=== PATIENT | male | born 1940 | race Caucasian/White ===

== ENCOUNTER 2016-10-22 07:07 | Day surgery (SDC) | payer MEDICARE, OTHER ==
[2016-10-22] MEDS ORDERED: Dextrose 5%-Lactated Ringers 1,000 ML IV SCH (08:00)
[2016-10-22] MEDS ORDERED: fentaNYL 100 MCG/2 ML SDV ONE (08:39)
[2016-10-22] MEDS ORDERED: Propofol 200 MG/20 ML SDV ONE (10:41)
[2016-10-22 11:31] VITALS: BP 152/92
--- NOTE | 2016-10-25 14:44 | OR ---
DATE OF PROCEDURE: 10/22/2016 PREOPERATIVE DIAGNOSIS: History of gastroesophageal reflux disease with possible eosinophilic esophagitis. POSTOPERATIVE DIAGNOSIS: History of gastroesophageal reflux disease with possible eosinophilic esophagitis. OPERATIVE PROCEDURE: Esophagogastroduodenoscopy with: 1. Biopsies of antrum for CLOtest. 2. Biopsies of esophagogastric junction for histologic evaluation. 3. Separate biopsies of mid and proximal esophagus for histologic examination to evaluate possibility of the eosinophilic esophagitis. ANESTHESIA: IV sedation. INDICATION FOR PROCEDURE: This is a 76-year-old male presenting with ongoing gastroesophageal reflux disease and had an endoscopy about a year ago. The patient was thought possibly to have some eosinophilic esophagitis, remains quite symptomatic in terms of reflux symptoms despite medical management. Plan is to proceed with an upper endoscopy with biopsies and/or polypectomy as indicated. Potential risks including bleeding and perforation were discussed, and the patient wishes to proceed. DETAILS OF PROCEDURE: The patient was taken to the operating room and placed in a left lateral decubitus position. IV sedation was administered, after which the upper GI endoscope was passed orally through the length of the esophagus and stomach. Retroflexion view of the fundus, and thereafter through the pyloric channel into the proximal duodenum. The patient was noted to have a normal hypopharynx, larynx, upper esophageal sphincter, and esophageal body. At the EG junction, there was some active gastroesophageal reflux disease associated with a small hiatal hernia. No stricture or gross evidence of neoplasia was seen. Within the stomach, there was some mild antral gastritis along with multiple hyperplastic-appearing polyps consistent with long-term proton pump inhibitor use of the pyloric channel and duodenum to the junction of the third and fourth portions was unremarkable. At this point, biopsies were obtained from the antrum and sent for CLOtest for H. pylori. Multiple biopsies were then obtained from esophagogastric junction, sent for histologic evaluation and multiple random biopsies from the mid and proximal esophagus were obtained and sent in a separate container to evaluate the possibility of the eosinophilic esophagitis. Minimally bleeding from the biopsy sites was seen, and the procedure then concluded. The patient will be following up back with us if not better in 1 to 2 weeks. If the patient remains uncontrolled in terms of reflux symptoms, medical management, he would potentially be a candidate for a Gino fundoplication. Tima Guerrero MD /[id number]
== END 2016-10-22 11:32 | disposition home or self-care (01) ==
LOC: JP.SDS 07:07
PROVIDERS: ATTEND Surgery
DX: K31.7 Polyp of stomach and duodenum (principal); K22.8 Other specified diseases of esophagus; Z88.8 Allergy status to other drugs, medicaments and biological substances; Z91.09 Other allergy status, other than to drugs and biological substances; N18.9 Chronic kidney disease, unspecified; I95.9 Hypotension, unspecified
CPT/HCPCS: 43239; 87081; J2704; J3010; J7042; 88305

== ENCOUNTER 2017-12-11 19:41 | Emergency (ER) | payer MEDICARE, OTHER ==
[2017-12-11 20:13] VITALS: BP 139/84
--- NOTE | 2017-12-11 21:08 | EDM.PDOC ---
ED HPI GENERAL MEDICAL PROBLEM - General Chief Complaint: Bite:Animal, Insect Stated Complaint: TICK BITE/JOINT ACHES,NOT FEELING WELL Time Seen by Provider: 12/11/17 20:40 Source of Information: Reports: Patient, Family History Limitations: Reports: No Limitations - History of Present Illness INITIAL COMMENTS - FREE TEXT/NARRATIVE: 77-year-old male who was bitten by a tick several times over the past several weeks. He did remove a deer tick from his left arm that he thought was on for 1- 2 days. He had a small amount of redness initially but felt fine but over the past 48 hours she's developed generalized malaise, mild joint pains and a headache. He is concerned that he may be developing early Lyme's disease or other tickborne illness. No fevers or chills. Denies nausea or vomiting. He has no rash. Onset: Gradual Severity: Mild Associated Symptoms: Reports: Malaise, Other (Headache, fatigue). Denies: Chest Pain, Cough, Fever/Chills, Shortness of Breath - Related Data Allergies Allergy/AdvReac Type Severity Reaction Status Date / Time acetaminophen [From Tylenol] Allergy Rash Verified 12/11/17 20:15 bacitracin Allergy Rash Verified 12/11/17 20:15 cephalexin Allergy Rash Verified 12/11/17 20:15 codeine Allergy Fainting Verified 12/11/17 20:15 tolterodine tartrate Allergy Rash Verified 12/11/17 20:15 [From Detr] environmental Allergy Cannot Uncoded 12/11/17 20:15 Remember Home Meds: Home Meds Acyclovir [Zovirax 5% Oint] 1 applic TOP DAILY PRN 08/21/14 [History] Aspirin [Halfprin] 81 mg PO DAILY 08/21/14 [History] Calcium Polycarbophil [Fibercon] 2 tab PO DAILY 08/21/14 [History] Clobetasol [Temovate 0.05% Crm] 1 applic TOP QID PRN 08/21/14 [History] Levothyroxine Sodium [Synthroid] 75 mcg PO DAILY 08/21/14 [History] Mupirocin Oint [Bactroban Oint] 1 applic TP QID PRN 08/21/14 [History] [place]-3 Fatty Acids [[place]-3] 1,000 mg PO BID 08/21/14 [History] Omeprazole 40 mg PO DAILY 08/21/14 [History] Sildenafil [Viagra] 100 mg PO ASDIRECTED PRN 08/21/14 [History] Triamcinolone Acetonide [Kenalog 0.1% Crm] 0.1 percent TOP QID PRN 08/21/14 [ History] atorvaSTATin [Lipitor] 20 mg PO BEDTIME 08/21/14 [History] valACYclovir [Valtrex] 1,000 mg PO BID PRN 08/21/14 [History] Allopurinol [Zyloprim] 100 mg PO DAILY 10/31/15 [History] Cyanocobalamin (Vitamin B-12) [B-12] 2,500 mcg PO DAILY 10/31/15 [History] Pentoxifylline [TRENtal] 400 mg PO TID 12/11/17 [History] Past Medical History HEENT History: Reports: Allergic Rhinitis, Impaired Vision, Sinusitis Other HEENT History: wears glasses Cardiovascular History: Reports: Heart Murmur, High Cholesterol Gastrointestinal History: Reports: GERD Genitourinary History: Reports: BPH, Prostate Disorder, Renal Disease Musculoskeletal History: Reports: Gout Neurological History: Reports: Headaches, Chronic, Vertigo Endocrine/Metabolic History: Reports: Hypothyroidism, Vitamin D Deficiency Hematologic History: Reports: B12 Deficiency, Other (See Below) Other Hematologic History: monoclonol protein Oncologic (Cancer) History: Reports: Basal Cell Carcinoma, Prostate Dermatologic History: Reports: Psoriasis, Urticaria - Infectious Disease History Infectious Disease History: Reports: Measles, Mumps - Past Surgical History HEENT Surgical History: Reports: Tonsillectomy, Other (See Below) Cardiovascular Surgical History: Reports: Other (See Below) GI Surgical History: Reports: Colonoscopy, EGD, Hernia, Inguinal, Hernia Repair/ Other Male Surgical History: Reports: Prostate Biopsy, Prostatectomy, Other (See Below) Musculoskeletal Surgical History: Reports: Arthroscopic Knee Oncologic Surgical History: Reports: Other (See Below) Dermatological Surgical History: Reports: Skin Biopsy Social & Family History - Family History Family Medical History: Noncontributory - Tobacco Use Smoking Status *Q: Never Smoker - Caffeine Use Caffeine Use: Reports: Soda - Recreational Drug Use Recreational Drug Use: No ED ROS GENERAL - Review of Systems Review Of Systems: See Below Constitutional: Reports: Malaise, Weakness. Denies: Fever, Chills HEENT: Reports: No Symptoms Respiratory: Denies: Shortness of Breath Cardiovascular: Denies: Chest Pain GI/Abdominal: Denies: Nausea, Vomiting : Reports: No Symptoms Musculoskeletal: Reports: Joint Pain (Generalized joint aching) Skin: Denies: Rash Neurological: Reports: Headache. Denies: Dizziness Psychiatric: Reports: No Symptoms ED EXAM, ANIMAL BITE - Physical Exam Exam: See Below Exam Limited By: No Limitations General Appearance: Alert, No Apparent Distress Eye Exam: Bilateral Eye: Normal Inspection Head: Atraumatic Neck: Normal Inspection Respiratory/Chest: No Respiratory Distress, Lungs Clear Cardiovascular: Regular Rate, Rhythm Extremities: Normal Inspection (I do not appreciate objective joint inflammation or swelling, no erythema) Neurological: Alert, Oriented Psychiatric: Normal Affect, Normal Mood Course - Vital Signs Last Recorded V/S: Last Vital Signs Temp 98.7 F 12/11/17 20:21 Pulse 92 12/11/17 20:21 Resp 16 12/11/17 20:21 BP 139/84 12/11/17 20:21 Pulse Ox 97 12/11/17 20:21 - Orders/Labs/Meds Orders: Active Orders 24 hr Category Date Time Status BABESIA MICROTI ANTIBODY PANEL Stat Lab 12/11/17 21:08 Received E. CHAFFEENSIS-HME (MONOCYTIC) Stat Lab 12/11/17 21:08 Received LYME, TOTAL AB TEST/REFLEX Routine Lab 12/11/17 21:02 Received - Re-Assessments/Exams Free Text/Narrative Re-Assessment/Exam: 12/11/17 21:05 Lyme's disease, ehrlichiosis and babesiosis titers were obtained. Patient will be started on doxycycline 100 mg twice a day pending lab results and was given a 10 day supply. This will need to be repeated if labs are positive. He can return if worsening despite treatment. Departure - Departure Time of Disposition: 21:16 Disposition: Home, Self-Care 01 Condition: Good Clinical Impression: Myalgia Tick bite of forearm Qualifiers: Encounter type: initial encounter Laterality: left Qualified Code(s): S50.862A - Insect bite (nonvenomous) of left forearm, initial encounter - Discharge Information Instructions: Tick Bite Information, Adult, [id number] Referrals: Luis Carlos Nicole MD [Primary Care Provider] - Forms: ED Department Discharge Care Plan Goals: Take doxycycline twice daily until you are contacted about lab results. If lab results are positive you will need another course of antibiotic for a full 3 weeks treatment. If lab results are negative but the antibiotic seems to be helping, just finish current prescription. Return sooner if worsening despite treatment. - My Orders Last 24 Hours: My Active Orders 12/11/17 21:02 LYME, TOTAL AB TEST/REFLEX Routine 12/11/17 21:08 BABESIA MICROTI ANTIBODY PANEL Stat E. CHAFFEENSIS-HME (MONOCYTIC) Stat - Assessment/Plan Last 24 Hours: My Active Orders 12/11/17 21:02 LYME, TOTAL AB TEST/REFLEX Routine 12/11/17 21:08 BABESIA MICROTI ANTIBODY PANEL Stat E. CHAFFEENSIS-HME (MONOCYTIC) Stat
== END 2017-12-11 21:17 | disposition home or self-care (01) ==
LOC: JP.ED 19:41
DX: S50.862A Insect bite (nonvenomous) of left forearm, initial encounter (principal); M79.1 Myalgia; E78.00 Pure hypercholesterolemia, unspecified; K21.9 Gastro-esophageal reflux disease without esophagitis; E03.9 Hypothyroidism, unspecified; Z79.899 Other long term (current) drug therapy; Z79.82 Long term (current) use of aspirin; Z88.1 Allergy status to other antibiotic agents; Z88.8 Allergy status to other drugs, medicaments and biological substances; Z91.09 Other allergy status, other than to drugs and biological substances; Z88.6 Allergy status to analgesic agent; W57.XXXA Bitten or stung by nonvenomous insect and other nonvenomous arthropods, initial encounter
CPT/HCPCS: 86666; 86666-59; 86753; 99283

== ENCOUNTER 2018-07-24 10:45 | Emergency (ER) | payer MEDICARE, OTHER ==
[2018-07-24 11:05] VITALS: BP 159/97
--- NOTE | 2018-07-24 11:52 | EDM.PDOC ---
ED HPI GENERAL MEDICAL PROBLEM - General Chief Complaint: ENT Problem Stated Complaint: SORE THROAT Time Seen by Provider: 07/24/18 11:30 Source of Information: Reports: Patient History Limitations: Reports: No Limitations - History of Present Illness INITIAL COMMENTS - FREE TEXT/NARRATIVE: 78-year-old male with a sore throat for the past 5 days, much worse over the past 24 hours. He is concerned because he is leaving for [place] in a few days and wants to be treated if possible. He's also developed sinus congestion with sinus drainage. No cough, no significant fevers. He is also interested in some ciprofloxacin to take with him on his trip. Onset: Gradual Duration: Day(s): (7 days) Associated Symptoms: Reports: Other (Sinus pressure, drainage). Denies: Chest Pain, Cough, Malaise, Nausea/Vomiting - Related Data Allergies Allergy/AdvReac Type Severity Reaction Status Date / Time acetaminophen [From Tylenol] Allergy Rash Verified 07/24/18 11:13 bacitracin Allergy Rash Verified 07/24/18 11:13 cephalexin Allergy Rash Verified 07/24/18 11:13 codeine Allergy Fainting Verified 07/24/18 11:13 tolterodine tartrate Allergy Rash Verified 07/24/18 11:13 [From Detrol] environmental Allergy Cannot Uncoded 07/24/18 11:13 Remember Home Meds: Home Meds Acyclovir [Zovirax 5% Oint] 1 applic TOP DAILY PRN 08/21/14 [History] Aspirin [Halfprin] 81 mg PO DAILY 08/21/14 [History] Calcium Polycarbophil [Fibercon] 2 tab PO DAILY 08/21/14 [History] Clobetasol [Temovate 0.05% Crm] 1 applic TOP QID PRN 08/21/14 [History] Levothyroxine Sodium [Synthroid] 75 mcg PO DAILY 08/21/14 [History] Mupirocin Oint [Bactroban Oint] 1 applic TP QID PRN 08/21/14 [History] [place]-3 Fatty Acids [[place]-3] 1,000 mg PO BID 08/21/14 [History] Omeprazole 40 mg PO DAILY 08/21/14 [History] Sildenafil [Viagra] 100 mg PO ASDIRECTED PRN 08/21/14 [History] Triamcinolone Acetonide [Kenalog 0.1% Crm] 0.1 percent TOP QID PRN 08/21/14 [ History] atorvaSTATin [Lipitor] 20 mg PO BEDTIME 08/21/14 [History] valACYclovir [Valtrex] 1,000 mg PO BID PRN 08/21/14 [History] Allopurinol [Zyloprim] 100 mg PO DAILY 10/31/15 [History] Cyanocobalamin (Vitamin B-12) [B-12] 2,500 mcg PO DAILY 10/31/15 [History] Pentoxifylline [TRENtal] 400 mg PO TID 12/11/17 [History] Past Medical History HEENT History: Reports: Allergic Rhinitis, Impaired Vision, Sinusitis Other HEENT History: wears glasses Cardiovascular History: Reports: Heart Murmur, High Cholesterol Gastrointestinal History: Reports: GERD Genitourinary History: Reports: BPH, Prostate Disorder, Renal Disease Musculoskeletal History: Reports: Gout Neurological History: Reports: Headaches, Chronic, Vertigo Endocrine/Metabolic History: Reports: Hypothyroidism, Vitamin D Deficiency Hematologic History: Reports: B12 Deficiency, Other (See Below) Other Hematologic History: monoclonol protein Oncologic (Cancer) History: Reports: Basal Cell Carcinoma, Prostate Dermatologic History: Reports: Psoriasis, Urticaria - Infectious Disease History Infectious Disease History: Reports: Measles, Mumps - Past Surgical History HEENT Surgical History: Reports: Tonsillectomy, Other (See Below) Cardiovascular Surgical History: Reports: Other (See Below) GI Surgical History: Reports: Colonoscopy, EGD, Hernia, Inguinal, Hernia Repair/ Other Male Surgical History: Reports: Prostate Biopsy, Prostatectomy, Other (See Below) Musculoskeletal Surgical History: Reports: Arthroscopic Knee Oncologic Surgical History: Reports: Other (See Below) Dermatological Surgical History: Reports: Skin Biopsy Social & Family History - Family History Family Medical History: Noncontributory - Tobacco Use Smoking Status *Q: Never Smoker - Caffeine Use Caffeine Use: Reports: Soda ED ROS ENT - Review of Systems Review Of Systems: See Below Constitutional: Denies: Fever, Chills HEENT: Reports: Sinus Problem, Throat Pain. Denies: Ear Pain Respiratory: Denies: Shortness of Breath, Cough Cardiovascular: Denies: Chest Pain GI/Abdominal: Denies: Abdominal Pain, Nausea, Vomiting : Reports: No Symptoms Musculoskeletal: Reports: Other (Recently had an injection in his left knee for arthritis) ED EXAM, ENT - Physical Exam Exam: See Below Exam Limited By: No Limitations General Appearance: Alert, No Apparent Distress Ears: Normal TMs Nose: Normal Inspection Mouth/Throat: Pharyngeal Erythema Head: Atraumatic, Sinus Tenderness (Is tender over the maxillary sinus and frontal sinuses) Neck: No: Lymphadenopathy (R), Lymphadenopathy (L) Respiratory/Chest: No Respiratory Distress, Lungs Clear Course - Vital Signs Last Recorded V/S: Last Vital Signs Temp 96.8 F 07/24/18 11:18 Pulse 82 07/24/18 11:18 Resp 16 07/24/18 11:18 BP 159/97 H 07/24/18 11:18 Pulse Ox 98 07/24/18 11:18 - Orders/Labs/Meds Orders: Active Orders 24 hr Category Date Time Status CULTURE STREP A CONFIRMATION [] Stat Lab 07/24/18 11:19 Results STREP SCRN A RAPID W CULT CONF [] Stat Lab 07/24/18 11:19 Results - Re-Assessments/Exams Free Text/Narrative Re-Assessment/Exam: 07/24/18 11:52 Rapid strep was obtained which is negative. Patient can be covered with amoxicillin 500 3 times a day for sinusitis prior to his trip, and was also supplied Cipro for preventative measures while gone. He was given 100 mL of viscous lidocaine to use for a painful throat until he improves. Departure - Departure Time of Disposition: 12:07 Disposition: Home, Self-Care 01 Condition: Good Clinical Impression: Pharyngitis Qualifiers: Pharyngitis/tonsillitis etiology: unspecified etiology Qualified Code(s): J02.9 - Acute pharyngitis, unspecified Sinusitis Qualifiers: Sinusitis location: maxillary Chronicity: acute Recurrence: non-recurrent Qualified Code(s): J01.00 - Acute maxillary sinusitis, unspecified - Discharge Information Instructions: Sinusitis, Adult, [id number] Referrals: Luis Carlos Nicole MD [Primary Care Provider] - Forms: ED Department Discharge Care Plan Goals: Take amoxicillin as directed for acute symptoms of sore throat and sinus issues. Use viscous lidocaine for throat pain, and save Cipro for your trip and take if necessary. Recheck prior to leaving if not improving satisfactorily. - My Orders Last 24 Hours: My Active Orders 07/24/18 11:19 CULTURE STREP A CONFIRMATION [RM] Stat STREP SCRN A RAPID W CULT CONF [RM] Stat - Assessment/Plan Last 24 Hours: My Active Orders 07/24/18 11:19 CULTURE STREP A CONFIRMATION [RM] Stat STREP SCRN A RAPID W CULT CONF [RM] Stat
== END 2018-07-24 12:07 | disposition home or self-care (01) ==
LOC: JP.ED 10:45
DX: J02.9 Acute pharyngitis, unspecified (principal); J01.00 Acute maxillary sinusitis, unspecified; E78.00 Pure hypercholesterolemia, unspecified; K21.9 Gastro-esophageal reflux disease without esophagitis; E03.9 Hypothyroidism, unspecified; Z79.82 Long term (current) use of aspirin; Z79.899 Other long term (current) drug therapy; Z88.1 Allergy status to other antibiotic agents; Z88.5 Allergy status to narcotic agent; Z88.8 Allergy status to other drugs, medicaments and biological substances; Z90.89 Acquired absence of other organs; Z98.871 Personal history of in utero procedure while a fetus
CPT/HCPCS: 87081; 87430; 99283

== ENCOUNTER 2018-09-21 16:50 | Emergency (ER) | payer MEDICARE, OTHER ==
[2018-09-21 17:00] VITALS: BP 153/106
--- NOTE | 2018-09-21 17:58 | EDM.PDOC ---
ED HPI GENERAL MEDICAL PROBLEM - General Chief Complaint: Lower Extremity Injury/Pain Stated Complaint: LEFT LEG PAIN Time Seen by Provider: 09/21/18 17:37 Source of Information: Reports: Patient History Limitations: Reports: No Limitations - History of Present Illness INITIAL COMMENTS - FREE TEXT/NARRATIVE: This gentleman comes in because of left knee and lower leg swelling. He had surgery to the left knee arthroscopic surgery on 31 August. Today he was doing a lot of walking and went to physical therapy. He said now his left knee is swelling a little bit but he has sudden pain in the left calf especially the lateral side of the calf at about the junction between the middle and lower thirds. There is no history of clots Left Lower Leg Pain Score (Numeric/FACES): 8 - Related Data Allergies Allergy/AdvReac Type Severity Reaction Status Date / Time acetaminophen [From Tylenol] Allergy Rash Verified 09/21/18 17:02 bacitracin Allergy Rash Verified 09/21/18 17:02 cephalexin Allergy Rash Verified 09/21/18 17:02 codeine Allergy Fainting Verified 09/21/18 17:02 tolterodine tartrate Allergy Rash Verified 09/21/18 17:02 [From Detrol] environmental Allergy Cannot Uncoded 09/21/18 17:02 Remember Home Meds: Home Meds Acyclovir [Zovirax 5% Oint] 1 applic TOP DAILY PRN 08/21/14 [History] Aspirin [Halfprin] 81 mg PO DAILY 08/21/14 [History] Clobetasol [Temovate 0.05% Crm] 1 applic TOP QID PRN 08/21/14 [History] Levothyroxine Sodium [Synthroid] 75 mcg PO DAILY 08/21/14 [History] Mupirocin Oint [Bactroban Oint] 1 applic TP QID PRN 08/21/14 [History] [place]-3 Fatty Acids [[place]-3] 1,000 mg PO BID 08/21/14 [History] Omeprazole 40 mg PO DAILY 08/21/14 [History] Sildenafil [Viagra] 100 mg PO ASDIRECTED PRN 08/21/14 [History] Triamcinolone Acetonide [Kenalog 0.1% Crm] 0.1 percent TOP QID PRN 08/21/14 [ History] atorvaSTATin [Lipitor] 20 mg PO BEDTIME 08/21/14 [History] valACYclovir [Valtrex] 1,000 mg PO BID PRN 08/21/14 [History] Allopurinol [Zyloprim] 100 mg PO DAILY 10/31/15 [History] Cyanocobalamin (Vitamin B-12) [B-12] 2,500 mcg PO DAILY 10/31/15 [History] Pentoxifylline [TRENtal] 400 mg PO TID 12/11/17 [History] Cholecalciferol (Vitamin D3) [Vitamin D] 2,000 unit PO DAILY 09/21/18 [History] Multivitamin [Multivitamins] 1 each PO DAILY 09/21/18 [History] Past Medical History HEENT History: Reports: Allergic Rhinitis, Impaired Vision, Sinusitis Other HEENT History: wears glasses Cardiovascular History: Reports: Heart Murmur, High Cholesterol Gastrointestinal History: Reports: GERD Genitourinary History: Reports: BPH, Prostate Disorder, Renal Disease Musculoskeletal History: Reports: Gout Neurological History: Reports: Headaches, Chronic, Vertigo Endocrine/Metabolic History: Reports: Hypothyroidism, Vitamin D Deficiency Hematologic History: Reports: B12 Deficiency, Other (See Below) Other Hematologic History: monoclonol protein Oncologic (Cancer) History: Reports: Basal Cell Carcinoma, Prostate Dermatologic History: Reports: Psoriasis, Urticaria - Infectious Disease History Infectious Disease History: Reports: Measles, Mumps - Past Surgical History Head Surgeries/Procedures: Reports: None HEENT Surgical History: Reports: Tonsillectomy, Other (See Below) Cardiovascular Surgical History: Reports: Other (See Below) Other Cardiovascular Surgeries/Procedures: angiogram GI Surgical History: Reports: Colonoscopy, EGD, Hernia, Inguinal, Hernia Repair/ Other Male Surgical History: Reports: Prostate Biopsy, Prostatectomy, Other (See Below) Endocrine Surgical History: Reports: None Musculoskeletal Surgical History: Reports: Arthroscopic Knee Oncologic Surgical History: Reports: Other (See Below) Dermatological Surgical History: Reports: Skin Biopsy Social & Family History - Family History Family Medical History: Noncontributory - Tobacco Use Smoking Status *Q: Never Smoker Second Hand Smoke Exposure: No - Caffeine Use Caffeine Use: Reports: Soda - Recreational Drug Use Recreational Drug Use: No Review of Systems - Review of Systems Review Of Systems: ROS reveals no pertinent complaints other than HPI. ED EXAM, GENERAL - Physical Exam Exam: See Below Exam Limited By: No Limitations General Appearance: Alert, WD/WN Extremities: Other (There is a mild effusion to the left knee. Left knee is nontender. There is just some mild ecchymosis to the posterior aspect of the left knee. Good range of motion of the left knee. No visible swelling of the lower leg but there is point tenderness to the lateral side of the calf it's about two th[address] way down that is the junction of the middle and lower third there is an area of point tenderness this feels to be musculoskeletal there is nothing there that makes me think of a DVT. The posterior calf muscles are all soft and nontender. There is decreased posterior tibial pulse and I was unable to palpate a dorsalis pedis pulse of the left foot. There is a lot of dependent rubor to his toes but with him reclining in the leg elevated normal color returns to his toes capillary refill is about 2-3 seconds. Overall my impression is that he does not have a DVT and that his pain is probably caused by overuse.) Course - Vital Signs Last Recorded V/S: Last Vital Signs Temp 36.2 C 09/21/18 17:05 Pulse 100 09/21/18 17:05 Resp 16 09/21/18 17:05 BP 153/106 H 09/21/18 17:05 Pulse Ox 96 09/21/18 17:05 Departure - Departure Time of Disposition: 17:56 Disposition: Home, Self-Care 01 Condition: Fair Clinical Impression: Effusion of left knee, Pain in left lower leg - Discharge Information Instructions: Musculoskeletal Pain, Pain Without a Known Cause Referrals: Luis Carlos Nicole MD [Primary Care Provider] - Forms: ED Department Discharge Additional Instructions: There does not appear to be a DVT in your left leg that would be a deep vein clot. It's possible to get a clot in the little tiny veins under the skin in that might cause some real localized tenderness but that's nothing to worry about. You can also develop inflammation in tendons were reattached to muscles and so forth. To treat this wear the kelli wrap heat may help. Elevate your leg when not walking. It would be best to cut down your walking. Follow-up with the orthopedist tomorrow as planned
== END 2018-09-21 18:09 | disposition home or self-care (01) ==
LOC: JP.ED 16:50
DX: M25.462 Effusion, left knee (principal); M79.662 Pain in left lower leg; E78.00 Pure hypercholesterolemia, unspecified; K21.9 Gastro-esophageal reflux disease without esophagitis; E03.9 Hypothyroidism, unspecified; Z88.8 Allergy status to other drugs, medicaments and biological substances; Z88.5 Allergy status to narcotic agent; Z79.82 Long term (current) use of aspirin; Z79.899 Other long term (current) drug therapy
CPT/HCPCS: 99283

== ENCOUNTER 2018-10-06 13:15 | Emergency (ER) | payer MEDICARE, OTHER ==
[2018-10-06 13:34] VITALS: BP 144/85
--- NOTE | 2018-10-06 14:01 | EDM.PDOC ---
ED HPI GENERAL MEDICAL PROBLEM - General Chief Complaint: Lower Extremity Injury/Pain Stated Complaint: LEFT KNEE PAIN Time Seen by Provider: 10/06/18 13:57 Source of Information: Reports: Patient History Limitations: Reports: No Limitations - History of Present Illness INITIAL COMMENTS - FREE TEXT/NARRATIVE: pt went to get out of the car and he heard something snap in the left knee . On September 26 he had some cartilage cleaned up and trimmed in the knee. He has continued to have pain and he feels like the knee continues to be swollen. Onset: Today, Other ( the snapping started today. ) Duration: Hour(s): Location: Reports: Lower Extremity, Left Associated Symptoms: Reports: No Other Symptoms - Related Data Allergies Allergy/AdvReac Type Severity Reaction Status Date / Time acetaminophen [From Tylenol] Allergy Rash Verified 09/21/18 17:02 bacitracin Allergy Rash Verified 09/21/18 17:02 cephalexin Allergy Rash Verified 09/21/18 17:02 codeine Allergy Fainting Verified 09/21/18 17:02 tolterodine tartrate Allergy Rash Verified 09/21/18 17:02 [From [facility]] environmental Allergy Cannot Uncoded 09/21/18 17:02 Remember Home Meds: Home Meds Acyclovir [Zovirax 5% Oint] 1 applic TOP DAILY PRN 08/21/14 [History] Aspirin [Halfprin] 81 mg PO DAILY 08/21/14 [History] Clobetasol [Temovate 0.05% Crm] 1 applic TOP QID PRN 08/21/14 [History] Levothyroxine Sodium [Synthroid] 75 mcg PO DAILY 08/21/14 [History] Mupirocin Oint [Bactroban Oint] 1 applic TP QID PRN 08/21/14 [History] [place]-3 Fatty Acids [[place]-3] 1,000 mg PO BID 08/21/14 [History] Omeprazole 40 mg PO DAILY 08/21/14 [History] Sildenafil [Viagra] 100 mg PO ASDIRECTED PRN 08/21/14 [History] Triamcinolone Acetonide [Kenalog 0.1% Crm] 0.1 percent TOP QID PRN 08/21/14 [ History] atorvaSTATin [Lipitor] 20 mg PO BEDTIME 08/21/14 [History] valACYclovir [Valtrex] 1,000 mg PO BID PRN 08/21/14 [History] Allopurinol [Zyloprim] 100 mg PO DAILY 10/31/15 [History] Cyanocobalamin (Vitamin B-12) [B-12] 2,500 mcg PO DAILY 10/31/15 [History] Pentoxifylline [TRENtal] 400 mg PO TID 12/11/17 [History] Cholecalciferol (Vitamin D3) [Vitamin D] 2,000 unit PO DAILY 09/21/18 [History] Multivitamin [Multivitamins] 1 each PO DAILY 09/21/18 [History] Past Medical History HEENT History: Reports: Allergic Rhinitis, Impaired Vision, Sinusitis Other HEENT History: wears glasses Cardiovascular History: Reports: Heart Murmur, High Cholesterol Gastrointestinal History: Reports: GERD Genitourinary History: Reports: BPH, Prostate Disorder, Renal Disease Musculoskeletal History: Reports: Gout Neurological History: Reports: Headaches, Chronic, Vertigo Endocrine/Metabolic History: Reports: Hypothyroidism, Vitamin D Deficiency Hematologic History: Reports: B12 Deficiency, Other (See Below) Other Hematologic History: monoclonol protein Oncologic (Cancer) History: Reports: Basal Cell Carcinoma, Prostate Dermatologic History: Reports: Psoriasis, Urticaria - Infectious Disease History Infectious Disease History: Reports: Measles, Mumps - Past Surgical History Head Surgeries/Procedures: Reports: None HEENT Surgical History: Reports: Tonsillectomy, Other (See Below) Cardiovascular Surgical History: Reports: Other (See Below) Other Cardiovascular Surgeries/Procedures: angiogram GI Surgical History: Reports: Colonoscopy, EGD, Hernia, Inguinal, Hernia Repair/ Other Male Surgical History: Reports: Prostate Biopsy, Prostatectomy, Other (See Below) Endocrine Surgical History: Reports: None Musculoskeletal Surgical History: Reports: Arthroscopic Knee Oncologic Surgical History: Reports: Other (See Below) Dermatological Surgical History: Reports: Skin Biopsy Social & Family History - Family History Family Medical History: Noncontributory - Caffeine Use Caffeine Use: Reports: Soda Review of Systems - Review of Systems Review Of Systems: See Below Constitutional: Reports: No Symptoms Eyes: Reports: No Symptoms Ears: Reports: No Symptoms Nose: Reports: No Symptoms Mouth/Throat: Reports: No Symptoms Respiratory: Reports: No Symptoms Cardiovascular: Reports: No Symptoms GI/Abdominal: Reports: No Symptoms Genitourinary: Reports: No Symptoms Musculoskeletal: Reports: Other (pain and swelling in the left knee. ) ED EXAM, GENERAL - Physical Exam Exam: See Below Free Text/Narrative:: pt arrived with increased pain in the left knee. He had a scope and some trimming of the cartilage on Sep 26. He has continued to be fairly uncomfortable. He got out of the car and he felt something snap and was quite uncomfortable. Exam Limited By: No Limitations General Appearance: Alert, Anxious, Mild Distress Extremities: Other (left knee appears to have a fair amount of fluid in the joint. It is not hot or inflamed. He is uncomfortable when he straightens out the knee. ) Neurological: Alert, Oriented, Normal Cognition Psychiatric: Normal Affect Course - Vital Signs Last Recorded V/S: Last Vital Signs Temp 35.6 C 10/06/18 13:33 Pulse 74 10/06/18 13:33 Resp 16 10/06/18 13:33 BP 144/85 H 10/06/18 13:33 Pulse Ox 98 10/06/18 13:33 - Orders/Labs/Meds Labs: Laboratory Tests 10/06/18 Range/Units 13:51 WBC 8.4 (4.5-11.0) K/uL RBC 5.69 (4.30-5.90) M/uL Hgb 16.2 H (12.0-15.0) g/dL Hct 49.9 (40.0-54.0) % MCV 88 (80-98) fL MCH 29 (27-31) pg MCHC 33 (32-36) % Plt Count 202 (150-400) K/uL Neut % (Auto) 66 (36-66) % Lymph % (Auto) 20 L (24-44) % Taney % (Auto) 9 H (2-6) % Eos % (Auto) 4 (2-4) % Baso % (Auto) 1 (0-1) % - Re-Assessments/Exams Free Text/Narrative Re-Assessment/Exam: 10/06/18 14:17 pt has a wbc which is normal. Departure - Departure Time of Disposition: 14:10 Disposition: Home, Self-Care 01 Condition: Fair Clinical Impression: Postoperative pain of knee - Discharge Information Referrals: Luis Carlos Nicole MD [Primary Care Provider] - Forms: ED Department Discharge Care Plan Goals: use 1/2 of the oxycodone that he has at home q6h as needed for pain, cool pack, minimal wt bearing. rtc for a MRI of left knee.
== END 2018-10-06 14:40 | disposition home or self-care (01) ==
LOC: JP.ED 13:15
DX: G89.18 Other acute postprocedural pain (principal); E78.00 Pure hypercholesterolemia, unspecified; K21.9 Gastro-esophageal reflux disease without esophagitis; E03.9 Hypothyroidism, unspecified; Z79.899 Other long term (current) drug therapy; Z79.82 Long term (current) use of aspirin; Z88.6 Allergy status to analgesic agent; Z88.1 Allergy status to other antibiotic agents; Z91.09 Other allergy status, other than to drugs and biological substances; Z88.8 Allergy status to other drugs, medicaments and biological substances
CPT/HCPCS: 36415; 85025; 99283

== ENCOUNTER 2018-10-21 15:53 | Emergency (ER) | payer MEDICARE, OTHER ==
[2018-10-21 16:18] VITALS: BP 153/87
--- NOTE | 2018-10-21 16:50 | EDM.PDOC ---
ED HPI GENERAL MEDICAL PROBLEM - General Chief Complaint: Lower Extremity Injury/Pain Stated Complaint: LT KNEE PAIN Time Seen by Provider: 10/21/18 16:35 Source of Information: Reports: Patient History Limitations: Reports: No Limitations - History of Present Illness INITIAL COMMENTS - FREE TEXT/NARRATIVE: This gentleman complains of left knee pain. His left knee was scoped on August 31. He has had continued pain since then and about one week ago he had a cortisone injection. He called orthopedic clinic today and they told him to come to the ER because they were worried about a joint infection. He describes pain even at rest going from the lateral side of the mid thigh all the way down to his ankle. He says his left calf seems to be a little bit swollen today. He also notes swelling of the left knee. He's been taking Tylenol up to 6000 mg per day. He has some oxycodone at home but has not been taking it. Left Knee Pain Score (Numeric/FACES): 8 - Related Data Allergies Allergy/AdvReac Type Severity Reaction Status Date / Time bacitracin Allergy Rash Verified 10/21/18 16:18 cephalexin Allergy Rash Verified 10/21/18 16:18 codeine Allergy Fainting Verified 10/21/18 16:18 tolterodine tartrate Allergy Rash Verified 10/21/18 16:18 [From [facility]] environmental Allergy Cannot Uncoded 09/21/18 17:02 Remember Home Meds: Home Meds Acyclovir [Zovirax 5% Oint] 1 applic TOP DAILY PRN 08/21/14 [History] Aspirin [Halfprin] 81 mg PO DAILY 08/21/14 [History] Clobetasol [Temovate 0.05% Crm] 1 applic TOP QID PRN 08/21/14 [History] Levothyroxine Sodium [Synthroid] 75 mcg PO DAILY 08/21/14 [History] Mupirocin Oint [Bactroban Oint] 1 applic TP QID PRN 08/21/14 [History] [place]-3 Fatty Acids [[place]-3] 1,000 mg PO BID 08/21/14 [History] Omeprazole 40 mg PO DAILY 08/21/14 [History] Sildenafil [Viagra] 100 mg PO ASDIRECTED PRN 08/21/14 [History] Triamcinolone Acetonide [Kenalog 0.1% Crm] 0.1 percent TOP QID PRN 08/21/14 [ History] atorvaSTATin [Lipitor] 20 mg PO BEDTIME 08/21/14 [History] valACYclovir [Valtrex] 1,000 mg PO BID PRN 08/21/14 [History] Allopurinol [Zyloprim] 100 mg PO DAILY 10/31/15 [History] Cyanocobalamin (Vitamin B-12) [B-12] 2,500 mcg PO DAILY 10/31/15 [History] Pentoxifylline [TRENtal] 400 mg PO TID 12/11/17 [History] Cholecalciferol (Vitamin D3) [Vitamin D] 2,000 unit PO DAILY 09/21/18 [History] Multivitamin [Multivitamins] 1 each PO DAILY 09/21/18 [History] Past Medical History HEENT History: Reports: Allergic Rhinitis, Impaired Vision, Sinusitis Other HEENT History: wears glasses Cardiovascular History: Reports: Heart Murmur, High Cholesterol Gastrointestinal History: Reports: GERD Genitourinary History: Reports: BPH, Prostate Disorder, Renal Disease Musculoskeletal History: Reports: Gout Neurological History: Reports: Headaches, Chronic, Vertigo Endocrine/Metabolic History: Reports: Hypothyroidism, Vitamin D Deficiency Hematologic History: Reports: B12 Deficiency, Other (See Below) Other Hematologic History: monoclonol protein Oncologic (Cancer) History: Reports: Basal Cell Carcinoma, Prostate Dermatologic History: Reports: Psoriasis, Urticaria - Infectious Disease History Infectious Disease History: Reports: Herpes - Past Surgical History Head Surgeries/Procedures: Reports: None HEENT Surgical History: Reports: Tonsillectomy, Other (See Below) Cardiovascular Surgical History: Reports: Other (See Below) Other Cardiovascular Surgeries/Procedures: angiogram GI Surgical History: Reports: Colonoscopy, EGD, Hernia, Inguinal, Hernia Repair/ Other Male Surgical History: Reports: Prostate Biopsy, Prostatectomy, Other (See Below) Endocrine Surgical History: Reports: None Musculoskeletal Surgical History: Reports: Arthroscopic Knee Oncologic Surgical History: Reports: Other (See Below) Dermatological Surgical History: Reports: Skin Biopsy Social & Family History - Family History Family Medical History: Noncontributory - Tobacco Use Smoking Status *Q: Never Smoker - Caffeine Use Caffeine Use: Reports: Soda - Recreational Drug Use Recreational Drug Use: No Review of Systems - Review of Systems Review Of Systems: ROS reveals no pertinent complaints other than HPI. ED EXAM, GENERAL - Physical Exam Exam: See Below Exam Limited By: No Limitations General Appearance: Alert, WD/WN, No Apparent Distress Extremities: Joint Swelling, Other (There is a small effusion of the left knee joint suprapatellar. The knee has a normal color and does not have increased warmth. There is some pain on range of motion but the joint is stable. There are no areas of tenderness to the knee joint. The thigh is completely normal no swelling is seen no cords no discoloration no tenderness. The left calf he feels like is swollen but this is barely perceptible to me if at all. The calf is completely nontender normal color and no increased warmth. He is observed bearing weight on the left leg with distal limb.). No: Increased Warmth Course - Vital Signs Last Recorded V/S: Last Vital Signs Temp 35.6 C 10/21/18 16:16 Pulse 76 10/21/18 16:16 Resp 16 10/21/18 16:16 BP 153/87 H 10/21/18 16:16 Pulse Ox 99 10/21/18 16:16 - Re-Assessments/Exams Free Text/Narrative Re-Assessment/Exam: 10/21/18 16:59 Thong wrap was applied from the ankle to the mid thigh. He was instructed on using his own crutches to take the weight off the left leg. Departure - Departure Time of Disposition: 16:47 Disposition: Home, Self-Care 01 Condition: Fair Clinical Impression: Left knee pain - Discharge Information Instructions: Knee Pain, Adult, [id number] Referrals: PCP,None [Primary Care Provider] - Forms: ED Department Discharge Additional Instructions: Use oxycodone 5 or 10 mg every 4 hours. This medication can cause sedation and impair driving or could cause falls. If taken excessively for more than a week you could become dependent on it. It is safe to take as directed however. You should limit Tylenol to no more than 4000 mg per day. Excess Tylenol can cause liver damage. Tylenol can be taken along with the oxycodone. Wear the thong wrap for comfort. Elevate your knee when able. Try using crutches to help take the weight off your left leg. Follow up with orthopedics on Wednesday as planned
== END 2018-10-21 17:02 | disposition home or self-care (01) ==
LOC: JP.ED 15:53
DX: M25.562 Pain in left knee (principal); E78.00 Pure hypercholesterolemia, unspecified; K21.9 Gastro-esophageal reflux disease without esophagitis; Z79.82 Long term (current) use of aspirin; Z79.899 Other long term (current) drug therapy; Z88.1 Allergy status to other antibiotic agents; Z88.5 Allergy status to narcotic agent; Z88.8 Allergy status to other drugs, medicaments and biological substances; Z91.09 Other allergy status, other than to drugs and biological substances
CPT/HCPCS: 99283

== ENCOUNTER 2019-07-14 14:37 | Emergency (ER) | payer MEDICARE, OTHER ==
[2019-07-14 15:01] VITALS: BP 169/98; PULSE 94
--- NOTE | 2019-07-14 15:35 | EDM.PDOC ---
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 he started having nosebleed this morning however by the time he reaches emergency department he feels most of his bleeding has resolved - Related Data Allergies Allergy/AdvReac Type Severity Reaction Status Date / Time acetaminophen Allergy Rash Verified 07/14/19 15:04 bacitracin Allergy Rash Verified 07/14/19 15:04 cephalexin Allergy Rash Verified 07/14/19 15:04 codeine Allergy Fainting Verified 07/14/19 15:04 tolterodine tartrate Allergy Rash Verified 07/14/19 15:04 [From [facility]] environmental Allergy Cannot Uncoded 07/14/19 15:04 Remember Home Meds: Home Meds Acyclovir [Zovirax 5% Oint] 1 applic TOP DAILY PRN 08/21/14 [History] Aspirin [Halfprin] 81 mg PO DAILY 08/21/14 [History] Clobetasol [Temovate 0.05% Crm] 1 applic TOP QID PRN 08/21/14 [History] Levothyroxine Sodium [Synthroid] 75 mcg PO DAILY 08/21/14 [History] Mupirocin Oint [Bactroban Oint] 1 applic TP QID PRN 08/21/14 [History] [place]-3 Fatty Acids [[place]-3] 1,000 mg PO BID 08/21/14 [History] Omeprazole 20 mg PO DAILY 08/21/14 [History] Sildenafil [Viagra] 100 mg PO ASDIRECTED PRN 08/21/14 [History] Triamcinolone Acetonide [Kenalog 0.1% Crm] 0.1 percent TOP QID PRN 08/21/14 [ History] atorvaSTATin [Lipitor] 20 mg PO BEDTIME 08/21/14 [History] valACYclovir [Valtrex] 1,000 mg PO BID PRN 08/21/14 [History] Allopurinol [Zyloprim] 100 mg PO DAILY 10/31/15 [History] Cyanocobalamin (Vitamin B-12) [B-12] 2,500 mcg PO DAILY 10/31/15 [History] Pentoxifylline [TRENtal] 400 mg PO TID 12/11/17 [History] Cholecalciferol (Vitamin D3) [Vitamin D] 2,000 unit PO DAILY 09/21/18 [History] Multivitamin [Multivitamins] 1 each PO DAILY 09/21/18 [History] Apixaban [Eliquis] 5 mg PO BID 06/13/19 [History] Betamethasone/Propylene Glyc [Betamethasone DP Aug 0.05%] 1 applic TOP ASDIRECTED 06/13/19 [History] Cilostazol 100 mg PO BID 06/13/19 [History] Colchicine 0.6 mg PO DAILY 06/13/19 [History] Diclofenac Sodium 1 applic TOP QID 06/13/19 [History] Ketoconazole [Nizoral 2% Shampoo] 1 applic TOP DAILY 06/13/19 [History] oxyCODONE HCl [Roxicodone] 5 mg PO Q4H PRN 06/13/19 [History] Glucosamine HCl [Glucosamine] 1,500 mg PO BID 07/14/19 [History] Past Medical History HEENT History: Reports: Allergic Rhinitis, Impaired Vision, Sinusitis Other HEENT History: wears glasses Cardiovascular History: Reports: Heart Murmur, High Cholesterol Gastrointestinal History: Reports: GERD Genitourinary History: Reports: BPH, Prostate Disorder, Renal Disease Musculoskeletal History: Reports: Gout, Other (See Below) Other Musculoskeletal History: low back pain. right shoudler pain. left knee pain Neurological History: Reports: Headaches, Chronic, Vertigo Psychiatric History: Reports: None Endocrine/Metabolic History: Reports: Hypothyroidism, Vitamin D Deficiency Hematologic History: Reports: B12 Deficiency, Other (See Below) Other Hematologic History: monoclonol protein Immunologic History: Reports: None Oncologic (Cancer) History: Reports: Basal Cell Carcinoma, Prostate Dermatologic History: Reports: Psoriasis, Urticaria - Infectious Disease History Infectious Disease History: Reports: Herpes - Past Surgical History Head Surgeries/Procedures: Reports: None HEENT Surgical History: Reports: Tonsillectomy, Other (See Below) Cardiovascular Surgical History: Reports: Other (See Below) Other Cardiovascular Surgeries/Procedures: angiogram GI Surgical History: Reports: Colonoscopy, EGD, Hernia, Inguinal, Hernia Repair/ Other Male Surgical History: Reports: Prostate Biopsy, Prostatectomy, Other (See Below) Endocrine Surgical History: Reports: None Neurological Surgical History: Reports: None Musculoskeletal Surgical History: Reports: Arthroscopic Knee Oncologic Surgical History: Reports: Other (See Below) Dermatological Surgical History: Reports: Skin Biopsy Social & Family History - Family History Family Medical History: Noncontributory - Tobacco Use Smoking Status *Q: Never Smoker Second Hand Smoke Exposure: No - Caffeine Use Caffeine Use: Reports: Soda - Recreational Drug Use Recreational Drug Use: No ED ROS GENERAL - Review of Systems Review Of Systems: See Below Constitutional: Reports: No Symptoms HEENT: Reports: Nosebleed Respiratory: Reports: No Symptoms Cardiovascular: Reports: No Symptoms ED EXAM, GENERAL - Physical Exam Exam: See Below Exam Limited By: No Limitations General Appearance: Alert, WD/WN, No Apparent Distress Nose: Normal Inspection, Other (Dried blood no active bleeding) Throat/Mouth: Normal Inspection, Normal Lips, Normal Teeth, Normal Gums, Normal Oropharynx, Normal Voice, No Airway Compromise Course - Vital Signs Last Recorded V/S: Last Vital Signs Temp 95.5 F 07/14/19 15:07 Pulse 94 07/14/19 15:07 Resp 14 07/14/19 15:07 BP 169/98 H 07/14/19 15:07 Pulse Ox 98 07/14/19 15:07 Departure - Departure Time of Disposition: 15:32 Disposition: Home, Self-Care 01 Condition: Fair Clinical Impression: Epistaxis - Discharge Information Referrals: Luis Carlos Nicole MD [Primary Care Provider] - Additional Instructions: Start your Eliquis tomorrow, please followup with your primary care provider in 3-5 days if not better, please call return to the emergency department with worsening of symptoms. Sepsis Event Note - Evaluation Sepsis Screening Result: No Definite Risk - Focused Exam Vital Signs: Vital Signs Temp Pulse Resp BP Pulse Ox 07/14/19 15:07 95.5 F 94 14 169/98 H 98 07/14/19 14:59 95.5 F 94 14 169/98 H 98 Date Exam was Performed: 07/14/19 Time Exam was Performed: 15:30 - Assessment/Plan Plan: Assessment Acuity = acute Site and laterality = epistasis Etiology = probably related to Eliquis and dry mucous membranes Manifestations = none Location of injury = Home Lab values = none Plan Elected to watchful waiting at this time no intervention was done, he is sent home with a nose clip he is not taking his Eliquis dose today, recommend restarting tomorrow and continue with regular medications This note was dictated using [employer] voice recognition software please call with any questions on syntax or grammar.
== END 2019-07-14 15:44 | disposition home or self-care (01) ==
LOC: JP.ED 14:37
DX: R04.0 Epistaxis (principal); E78.00 Pure hypercholesterolemia, unspecified; K21.9 Gastro-esophageal reflux disease without esophagitis; E03.9 Hypothyroidism, unspecified; Z88.6 Allergy status to analgesic agent; Z88.5 Allergy status to narcotic agent; Z88.1 Allergy status to other antibiotic agents; Z91.048 Other nonmedicinal substance allergy status; Z79.82 Long term (current) use of aspirin; Z79.899 Other long term (current) drug therapy; Z79.890 Hormone replacement therapy
CPT/HCPCS: 99281; 99283

== ENCOUNTER 2021-03-06 01:27 | Emergency (ER) | payer MEDICARE, OTHER ==
--- NOTE | 2021-03-06 02:06 | EDM.PDOC ---
ED HPI GENERAL MEDICAL PROBLEM - General Chief Complaint: Chest Pain Stated Complaint: CHEST PAIN Time Seen by Provider: 03/06/21 01:40 Source of Information: Reports: Patient, Family History Limitations: Reports: No Limitations - History of Present Illness INITIAL COMMENTS - FREE TEXT/NARRATIVE: 80-year-old male with right upper quadrant and epigastric pain with some radiation to the substernal area of the chest for the past 3-1/2 hours. Nausea but no vomiting, fairly significant pain radiating into the left shoulder. It hurts to breathe. He was having some intermittent abdominal pain for several months but it seemed to resolve. No fevers or chills. Decreased bowel movements over the past 2 days. No diaphoresis, no shortness of breath although he does have pleuritic pain in the right chest with breathing. He could also feel increased pain with bumps in the road on the way in. Onset: Sudden (Pain started fairly suddenly about 3-1/2 hours ago) Duration: Hour(s): (Almost 4 hours of symptoms) Location: Reports: Chest, Abdomen (Right upper quadrant, lower chest and radiating into the back and left shoulder) Severity: Moderate Worsens with: Reports: Other (Breathing), Movement Associated Symptoms: Reports: Chest Pain, Malaise, Nausea/Vomiting (Nausea but no vomiting). Denies: Fever/Chills, Shortness of Breath chest pain Pain Score (Numeric/FACES): 6 - Related Data Allergies Allergy/AdvReac Type Severity Reaction Status Date / Time acetaminophen Allergy Rash Verified 03/06/21 01:29 bacitracin Allergy Rash Verified 03/06/21 01:29 cephalexin Allergy Rash Verified 03/06/21 01:29 codeine Allergy Fainting Verified 03/06/21 01:29 tolterodine tartrate Allergy Rash Verified 03/06/21 01:29 [From [facility]] environmental Allergy Cannot Uncoded 03/06/21 01:29 Remember Home Meds: Home Meds Acyclovir [Zovirax 5% Oint] 1 applic TOP DAILY PRN 08/21/14 [History] Aspirin [Halfprin] 81 mg PO BEDTIME 08/21/14 [History] Clobetasol [Temovate 0.05% Crm] 1 applic TOP QID PRN 08/21/14 [History] Levothyroxine Sodium [Synthroid] 75 mcg PO DAILY 08/21/14 [History] Mupirocin Oint [Bactroban Oint] 1 applic TP QID PRN 08/21/14 [History] [place]-3 Fatty Acids [[place]-3] 1,000 mg PO BID 08/21/14 [History] Triamcinolone Acetonide [Kenalog 0.1% Crm] 0.1 percent TOP QID PRN 08/21/14 [History] atorvaSTATin [Lipitor] 20 mg PO BEDTIME 08/21/14 [History] valACYclovir [Valtrex] 1,000 mg PO BID PRN 08/21/14 [History] Allopurinol [Zyloprim] 200 mg PO DAILY 10/31/15 [History] Cyanocobalamin (Vitamin B-12) [B-12] 2,500 mcg PO DAILY 10/31/15 [History] Cholecalciferol (Vitamin D3) [Vitamin D] 2,000 unit PO DAILY 09/21/18 [History] Multivitamin [Multivitamins] 1 each PO DAILY 09/21/18 [History] Apixaban [Eliquis] 2.5 mg PO BID 06/13/19 [History] Betamethasone/Propylene Glyc [Betamethasone DP Aug 0.05%] 1 applic TOP ASDIRECTED PRN 06/13/19 [History] Diclofenac Sodium 1 applic TOP QID PRN 06/13/19 [History] Ketoconazole [Nizoral 2% Shampoo] 1 applic TOP DAILY 06/13/19 [History] cilostazoL [Cilostazol] 100 mg PO BID 06/13/19 [History] tiZANidine HCl [Tizanidine HCl] 4 mg PO DAILY PRN 05/23/20 [History] calcium polycarbophiL [Fibercon] 1,250 mg PO DAILY 03/06/21 [History] Past Medical History HEENT History: Reports: Allergic Rhinitis, Impaired Vision, Sinusitis Other HEENT History: wears glasses Cardiovascular History: Reports: Heart Murmur, High Cholesterol Respiratory History: Reports: None Gastrointestinal History: Reports: GERD Genitourinary History: Reports: BPH, Prostate Disorder, Renal Disease Musculoskeletal History: Reports: Gout, Other (See Below) Other Musculoskeletal History: low back pain. right shoudler pain. left knee pain Neurological History: Reports: Headaches, Chronic, Vertigo Psychiatric History: Reports: None Endocrine/Metabolic History: Reports: Hypothyroidism, Vitamin D Deficiency Hematologic History: Reports: B12 Deficiency, Other (See Below) Other Hematologic History: monoclonol protein Immunologic History: Reports: None Oncologic (Cancer) History: Reports: Basal Cell Carcinoma, Prostate Dermatologic History: Reports: Psoriasis, Urticaria - Infectious Disease History Infectious Disease History: Reports: Herpes - Past Surgical History Head Surgeries/Procedures: Reports: None HEENT Surgical History: Reports: Tonsillectomy, Other (See Below) Other HEENT Surgeries/Procedures: eyelid surgery Cardiovascular Surgical History: Reports: Other (See Below) Other Cardiovascular Surgeries/Procedures: angiogram GI Surgical History: Reports: Colonoscopy, EGD, Hernia, Inguinal, Hernia Repair/Other Male Surgical History: Reports: Prostate Biopsy, Prostatectomy, Other (See Below) Other Male Surgeries/Procedures: kidney biopsy Endocrine Surgical History: Reports: None Neurological Surgical History: Reports: None Musculoskeletal Surgical History: Reports: Arthroscopic Knee Oncologic Surgical History: Reports: Other (See Below) Other Oncologic Surgeries/Procedures: left upper chest skin biopsy, eyelid growth removal Dermatological Surgical History: Reports: Skin Biopsy Social & Family History - Family History Family Medical History: No Pertinent Family History - Tobacco Use Tobacco Use Status *Q: Never Tobacco User - Caffeine Use Caffeine Use: Reports: Soda - Recreational Drug Use Recreational Drug Use: No ED ROS GENERAL - Review of Systems Review Of Systems: See Below Constitutional: Reports: Malaise. Denies: Fever, Chills HEENT: Reports: No Symptoms Respiratory: Reports: Pleuritic Chest Pain. Denies: Shortness of Breath Cardiovascular: Reports: Chest Pain GI/Abdominal: Reports: Abdominal Pain, Nausea. Denies: Hematemesis, Melena, Vomiting : Reports: No Symptoms Musculoskeletal: Reports: Other (Chronic back and right shoulder pain) Skin: Denies: Rash Neurological: Denies: Dizziness, Headache ED EXAM, GENERAL - Physical Exam Exam: See Below Exam Limited By: No Limitations General Appearance: Alert, No Apparent Distress (Looks uncomfortable but not distressed) Eye Exam: Bilateral Eye: Normal Inspection (No jaundice) Head: Atraumatic Respiratory/Chest: No Respiratory Distress, Lungs Clear Cardiovascular: Regular Rate, Rhythm GI/Abdominal: Soft, Guarding, Rebound (Patient is very tender in the right upper quadrant, marked guarding, moderate rebound and very positive Craig sign), Tender Extremities: Normal Inspection. No: Pedal Edema Neurological: Alert, Oriented, No Motor/Sensory Deficits Psychiatric: Normal Affect, Normal Mood Skin Exam: Warm, Dry #1 Interpretation EKG Date: 03/06/21 Rhythm: NSR ST-T: Normal EKG Interpretation Comments: Q waves in the inferior leads are very similar to EKG 5 years ago, normal sinus rhythm and no significant ST changes. Course - Vital Signs Last Recorded V/S: Last Vital Signs Temp 97.8 F 03/06/21 01:32 Pulse 76 03/06/21 03:22 Resp 11 L 03/06/21 03:22 BP 161/101 H 03/06/21 03:22 Pulse Ox 97 03/06/21 03:22 - Orders/Labs/Meds Orders: Active Orders 24 hr Category Date Time Status EKG 12 Lead [EK] Routine Ther 03/06/21 02:00 Ordered Labs: Laboratory Tests 03/06/21 03/06/21 Range/Units 02:17 02:17 WBC 7.8 (4.5-11.0) K/uL RBC 5.17 (4.30-5.90) M/uL Hgb 15.0 (12.0-15.0) g/dL Hct 44.1 (40.0-54.0) % MCV 85 (80-98) fL MCH 29 (27-31) pg MCHC 34 (32-36) % Plt Count 220 (150-400) K/uL Neut % (Auto) 62.3 (36-66) % Lymph % (Auto) 21.7 L (24-44) % [place] % (Auto) 11.1 H (2-6) % Eos % (Auto) 4.1 H (2-4) % Baso % (Auto) 0.8 (0-1) % Sodium 141 (140-148) mmol/L Potassium 3.9 (3.6-5.2) mmol/L Chloride 106 (100-108) mmol/L Carbon Dioxide 25 (21-32) mmol/L Anion Gap 9.7 (5.0-14.0) mmol/L BUN 22 H (7-18) mg/dL Creatinine 1.6 H (0.8-1.3) mg/dL Est Cr Clr Drug Dosing 42.54 mL/min Estimated GFR (MDRD) 42 L (>60) Glucose 124 H (74-106) mg/dL Calcium 8.8 (8.5-10.1) mg/dL Total Bilirubin 0.3 D (0.2-1.0) mg/dL AST 15 (15-37) U/L ALT 19 (12-78) U/L Alkaline Phosphatase 69 (46-116) U/L Troponin I < 0.017 (0.000-0.056) ng/mL Total Protein 6.4 (6.4-8.2) g/dL Albumin 3.1 L (3.4-5.0) g/dL Globulin 3.3 (2.3-3.5) g/dL Albumin/Globulin Ratio 0.9 L (1.2-2.2) Lipase 215 (73-393) U/L Meds: Medications Discontinued Medications Generic Name Dose Route Start Last Admin Trade Name Freq PRN Reason Stop Dose Admin Fentanyl 25 mcg 03/06/21 02:11 03/06/21 02:34 Fentanyl 100 Mcg/2 Ml Sdv IVPUSH 03/06/21 02:12 25 mcg ONETIME ONE Administration Fentanyl 25 mcg 03/06/21 02:55 03/06/21 03:17 Fentanyl 100 Mcg/2 Ml Sdv IVPUSH 03/06/21 02:56 25 mcg ONETIME ONE Administration Sodium Chloride 1,000 mls @ 250 mls/hr 03/06/21 02:15 03/06/21 02:35 Normal Saline IV 250 mls/hr ASDIRECTED GLORIA Administration - Re-Assessments/Exams Free Text/Narrative Re-Assessment/Exam: 03/06/21 02:06 [id number] ultrasound was done at the bedside showed a very large gallbladder with what appeared to be moderately thickened wall but I did not see any stones. He was very sore from the probe over the gallbladder. CBC, CMP, lipase, troponin were obtained. Patient declined any pain medication initially. 03/06/21 02:55 Labs are reassuring, white count is normal, lipase is normal and troponin is negative. Liver function studies are normal. Patient was still having some significant discomfort even after 25 mcg of fentanyl so an additional dose was given and he will return tomorrow for a formal gallbladder ultrasound. Departure - Departure Time of Disposition: 03:23 Disposition: Home, Self-Care 01 Clinical Impression: Abdominal pain Qualifiers: Abdominal location: right upper quadrant Qualified Code(s): R10.11 - Right upper quadrant pain - Discharge Information Instructions: Abdominal Pain, Adult Referrals: Luis Carlos Nicole MD [Primary Care Provider] - Forms: ED Department Discharge Care Plan Goals: Drinking water is okay but do not eat anything until your ultrasound of your gallbladder tomorrow, they will call you with the time. Return sooner if wo rsening such as fever, nausea or vomiting or increased pain. Sepsis Event Note (ED) - Evaluation Sepsis Screening Result: No Definite Risk - My Orders Last 24 Hours: My Active Orders 03/06/21 02:00 EKG 12 Lead [EK] Routine - Assessment/Plan Last 24 Hours: My Active Orders 03/06/21 02:00 EKG 12 Lead [EK] Routine
[2021-03-06] MEDS ORDERED: fentaNYL 100 MCG/2 ML SDV IVPUSH ONE ×2 (02:11→02:55)
[2021-03-06] MEDS ORDERED: Sodium Chloride 0.9% 1,000 ML IV SCH (02:15)
[2021-03-06 03:23] VITALS: BP 161/101; PULSE 76
== END 2021-03-06 03:38 | disposition home or self-care (01) ==
LOC: JP.ED 01:27
DX: R10.11 Right upper quadrant pain (principal); E78.00 Pure hypercholesterolemia, unspecified; K21.9 Gastro-esophageal reflux disease without esophagitis; E03.9 Hypothyroidism, unspecified; Z88.1 Allergy status to other antibiotic agents; Z88.5 Allergy status to narcotic agent; Z88.8 Allergy status to other drugs, medicaments and biological substances; Z79.82 Long term (current) use of aspirin; Z79.899 Other long term (current) drug therapy; Z79.01 Long term (current) use of anticoagulants; Z91.09 Other allergy status, other than to drugs and biological substances
CPT/HCPCS: 36415; 80053; 83690; 84484; 85025; 93005; 96374; 96376; 99284; J3010; J7030

== ENCOUNTER 2021-03-07 06:29 | Day surgery (SDC) | payer MEDICARE, OTHER ==
[2021-03-07] MEDS ORDERED: Succinylcholine 200 MG/10 ML MDV ONE (07:13)
[2021-03-07] MEDS ORDERED: fentaNYL 250 MCG/5 ML SDV ONE (07:13)
[2021-03-07] MEDS ORDERED: Glycopyrrolate 0.2 MG/ML 5 ML MDV ONE (07:13)
[2021-03-07] MEDS ORDERED: Neostigmine Methylsulfate 1 MG/ML 5 ML Syringe ONE (07:13)
[2021-03-07] MEDS ORDERED: Propofol 200 MG/20 ML SDV ONE (07:13)
[2021-03-07] MEDS ORDERED: Dexamethasone 4 MG/ML SDV ONE (07:13)
[2021-03-07] MEDS ORDERED: Rocuronium 50 MG/5 ML Vial ONE (07:13)
[2021-03-07] MEDS ORDERED: Ondansetron 4 MG/2 ML SDV ONE (07:13)
[2021-03-07] MEDS: Dextrose 5%-Lactated Ringers 1,000 ML IV SCH ×2 (07:35→16:10)
[2021-03-07] MEDS ORDERED: Meropenem 500 MG in Sodium Chloride 0.9% 50 ML IV ONE (08:00)
[2021-03-07] MEDS ORDERED: Ropivacaine 46 ML, dexAMETHasone 8 MG, EPINEPHrine 0.4 MG, Sodium Chloride 0.9% 31.6 ML NERVRT SCH ×4 (08:00)
[2021-03-07] MEDS ORDERED: Labetalol 20 MG/4 ML Syringe ONE (08:47)
[2021-03-07] MEDS: Bupivacaine 0.5%/EPINEPHrine 1:200,000 50 ML MDV ONE ×2 (08:48→09:10)
[2021-03-07] MEDS ORDERED: fentaNYL 100 MCG/2 ML SDV ONE (08:54)
[2021-03-07] MEDS ORDERED: Sugammadex Sodium 200 MG/2 ML VIAL ONE (09:09)
[2021-03-07] MEDS ORDERED: Lactated Ringers 1,000 ML ONE (09:17)
[2021-03-07] MEDS ORDERED: diphenhydrAMINE 50 MG/ML SDV ONE (09:47)
[2021-03-07] MEDS: HYDROmorphone 2 MG Tab PO PRN ×3 (10:52→20:35)
[2021-03-07] MEDS ORDERED: HYDROmorphone 0.5 MG/0.5 ML Syringe IVPUSH PRN (11:00)
[2021-03-07] MEDS ORDERED: HYDROmorphone 1 MG/ML Syringe IV PRN (11:00)
[2021-03-07] MEDS ORDERED: Ondansetron 4 MG/2 ML SDV IVPUSH PRN (11:00)
[2021-03-07] MEDS: Pantoprazole 40 MG Vial IVPUSH SCH (13:36)
[2021-03-07] MEDS: Meropenem 500 MG in Sodium Chloride 0.9% 50 ML IV SCH ×2 (13:40→20:33)
[2021-03-07] MEDS: Aspirin 81 MG Tab.EC PO SCH (20:42)
[2021-03-07] MEDS: atorvaSTATin 20 MG Tab PO SCH (20:42)
[2021-03-07] MEDS: Apixaban 2.5 MG Tab PO SCH (20:42)
[2021-03-08] MEDS: Dextrose 5%-Lactated Ringers 1,000 ML IV SCH (02:39)
[2021-03-08] MEDS: HYDROmorphone 2 MG Tab PO PRN ×5 (02:43→20:15)
[2021-03-08] MEDS: Meropenem 500 MG in Sodium Chloride 0.9% 50 ML IV SCH ×4 (02:44→20:15)
[2021-03-08] MEDS: Bisacodyl 5 MG Tab PO SCH ×2 (08:12→21:12)
[2021-03-08] MEDS: Docusate Sodium 100 MG Cap PO SCH ×2 (08:12→21:12)
[2021-03-08] MEDS: Apixaban 2.5 MG Tab PO SCH ×2 (08:12→21:13)
[2021-03-08] MEDS: Allopurinol 100 MG Tab PO SCH (08:12)
[2021-03-08] MEDS: Pantoprazole 40 MG Vial IVPUSH SCH (13:04)
[2021-03-08] MEDS: atorvaSTATin 20 MG Tab PO SCH (21:12)
[2021-03-08] MEDS: Aspirin 81 MG Tab.EC PO SCH (21:12)
[2021-03-09] MEDS: HYDROmorphone 2 MG Tab PO PRN ×2 (02:09→06:01)
[2021-03-09] MEDS: Meropenem 500 MG in Sodium Chloride 0.9% 50 ML IV SCH ×2 (02:13→08:49)
[2021-03-09] MEDS ORDERED: Acetaminophen 500 MG Tab PO ONE (06:45)
[2021-03-09 08:38] VITALS: BP 138/85; PULSE 77
[2021-03-09] MEDS: Apixaban 2.5 MG Tab PO SCH (08:46)
[2021-03-09] MEDS: Docusate Sodium 100 MG Cap PO SCH (08:47)
[2021-03-09] MEDS: Allopurinol 100 MG Tab PO SCH (08:47)
[2021-03-09] MEDS: Bisacodyl 5 MG Tab PO SCH (08:47)
[2021-03-09] MEDS ORDERED: Magnesium Hydroxide 400 MG/5 ML Susp 30 ML Cup PO PRN (08:56)
--- NOTE | 2021-03-09 12:58 | PN ---
DATE OF SERVICE: 03/07/2021 The patient has been afebrile with stable vital signs. Somewhat unsteady on his legs, and we will hold his discharge as oral intake has not yet resumed satisfactorily either. Drain we will remove that today. He does have a history of abdominal aortic aneurysm. The last time it was imaged was around 6 months ago, and it was 3.5 cm then. We will obtain an ultrasound today to see if there is any change and recommend interval followup ultrasound for followup of that in the interim. Otherwise, we will give him some milk of magnesia this morning for bowel stimulation and may be ready for discharge home tomorrow. Tima Guerrero MD /[id number]
--- NOTE | 2021-03-11 14:58 | DISCH ---
FINAL DIAGNOSES: 1. Chronic cholecystitis and cholelithiasis with acute exacerbation. 2. Recurrent incarcerated incisional hernia. SECONDARY DIAGNOSES: 1. Small abdominal aortic aneurysm. 2. History of osteoarthritis of knee. 3. Rotator cuff syndrome, left shoulder. 4. Low back pain. 5. History of deep venous thrombosis. OPERATIVE PROCEDURES: Done on 03/07, diagnostic laparoscopy with: 1. Cholecystectomy. 2. Repair of recurrent incarcerated umbilical hernia. SUMMARY: This is an 80-year-old male presenting with quite severe right upper quadrant pain in the early hours of 03/06/2021. He was felt to have probable biliary colic at that time. Ultrasound did show a distended gallbladder with marked tenderness over the gallbladder. A second ultrasound showed some thick-walled gallbladder later in the day, and the patient was examined and plan made to proceed with a cholecystectomy on 03/07. This was done, and the patient was noted to have a markedly edematous gallbladder with a few small stones up to about 3 mm in size. The patient was also noted to have recurrence of incarcerated umbilical incisional hernia in the subumbilical area adjacent to his previously placed mesh which was repaired concurrently. Postoperatively, the patient was a little bit too uncomfortable to go home on postop day one and now is comfortable with a combination of Tylenol and Dilaudid. He will be sent home with the usual medications plus Tylenol 650 mg q.i.d. x5 days and then p.r.n. and Dilaudid 2 mg q.6 hours p.r.n. #12, and Milk of Magnesia. The patient, on CT scan in September of this year, was noted to have an abdominal aortic aneurysm in the range of 3.5 cm. We attempted to obtain an ultrasound of the area to see if there has been any interval change, but there was too much gas present, and given this, we will schedule an outpatient ultrasound in the next 2 weeks and report that to Dr. Guerrero and Dr. Luis Carlos Nicole. With an aneurysm size of 3.5, he should be involved in some sort of a routine ultrasound followup at this point. The interval can be determined by Dr. Nicole. Otherwise, follow up will be with the surgery department on Wednesday, 03/18. He will be on a regular diet. /[id number]
--- NOTE | 2021-03-20 08:52 | OR ---
DATE OF PROCEDURE: 03/07/2021 SURGEON: Tima Guerrero MD PREOPERATIVE DIAGNOSES: Chronic cholecystitis and cholelithiasis. POSTOPERATIVE DIAGNOSES: 1. Chronic cholecystitis and cholelithiasis. 2. Recurrent incarcerated incisional hernia. OPERATIVE PROCEDURES: Diagnostic laparoscopy with: 1. Cholecystectomy (08537). 2. Repair of recurrent incarcerated incisional hernia (21214). ANESTHESIA: General. INDICATIONS FOR PROCEDURE: This is an 80-year-old male presenting with recurrent episodes of biliary colic. He was noted to have cholelithiasis, and the plan is to proceed with laparoscopically necessary open cholecystectomy. Potential risks of the procedure including bleeding, infection, injury to underlying viscera, and possible migration of stones in the common bile duct requiring additional procedures for correction were reviewed, and the patient wishes to proceed. DETAILS OF PROCEDURE: The patient was taken to the operating room and placed in a supine position. After general endotracheal anesthesia was induced, the abdomen was prepped and draped. A transverse epigastric incision was made and peritoneal cavity entered under direct vision with an Optiview trocar, inflated to 15 mmHg pressure with CO2. Laparoscope was reinserted. No underlying trocar insertion site injuries were seen. Following this, the patient was noted to have some adhesions related to the previous periumbilical mesh that had been placed. A 5 mm trocar was placed in the right subcostal area and those adhesions were taken down just inferior to the previous mesh. The patient was noted to have recurrent incisional hernia which contained some incarcerated omentum. This was dissected free, and the camera port incision was then made directly over the hernia site and brought down through it to allow subsequent repair. With the camera port now in the subumbilical trocar site, the gallbladder was retracted anteriorly and laterally, was noted have quite a bit in the way of gallbladder edema, particularly in the area of the cystohepatic triangle. The dissection began on the gallbladder neck with Harmonic Scalpel and continued around the gallbladder neck and cystic duct junction until that area was well delineated. Adjacent cystic artery was also identified and well delineated at this point. The duct itself was somewhat large and edematous and this was taken with a ALISA yun load and the artery taken with clips and sealed with Harmonic Scalpel and distally divided with clips. Gallbladder was then dissected off the gallbladder bed using Harmonic scalpel and delivered through the epigastric trocar site. It was then noted to contain some small roughly 3 mm stones within it. At this point, the dissection around the gallbladder was felt to be clean and drain was felt not to be necessary. The camera port was then brought back up to the epigastric site and the incisional hernia was then closed with passage of 0 Vicryl sutures through laparoscopic suture device closing the defect in a transverse orientation. Upon placement of the sutures, remaining trocars were removed and peritoneal cavity deflated. The sutures of the 12 mm sites were closed with 0 Vicryl stitch and the skin with 4-0 Vicryl skin stitch. Prior to closure, bilateral transversus abdominis plane blocks were placed, and the patient was taken to the recovery room in satisfactory condition. Tima Guerrero MD /[id number]
== END 2021-03-09 11:15 ==
LOC: JP.SDS 06:29 → JP.MS 09:15 → JP.SDS 03-09 11:15
PROVIDERS: ATTEND Surgery
DX: K80.12 Calculus of gallbladder with acute and chronic cholecystitis without obstruction (principal); K43.0 Incisional hernia with obstruction, without gangrene; M54.5 Low back pain; M17.9 Osteoarthritis of knee, unspecified; E78.00 Pure hypercholesterolemia, unspecified; K21.9 Gastro-esophageal reflux disease without esophagitis; Z88.5 Allergy status to narcotic agent; Z88.8 Allergy status to other drugs, medicaments and biological substances; Z79.899 Other long term (current) drug therapy; Z98.890 Other specified postprocedural states
CPT/HCPCS: 36415; 47562; 80053; 82247; 83735; 84075; 84100; 84443; 85027; 88304; A9270; C9113; J0171; J0330; J1100; J1170; J2185; J2704; J2710; J2795; J3010; J3490; J7120; J7121; J1200; J2405

== ENCOUNTER 2021-03-11 11:08 | Emergency (ER) | payer MEDICARE, OTHER ==
[2021-03-11 12:43] VITALS: BP 140/92; PULSE 78
--- NOTE | 2021-03-11 12:50 | EDM.PDOC ---
ED HPI GENERAL MEDICAL PROBLEM - General Chief Complaint: General Stated Complaint: possible blood clot Time Seen by Provider: 03/11/21 12:44 Source of Information: Reports: Patient, Family, RN Notes Reviewed History Limitations: Reports: No Limitations - History of Present Illness INITIAL COMMENTS - FREE TEXT/NARRATIVE: 80-year-old gentleman presents emergency department day complaint of leg pain, he is postop day 4 from a lap cholecystectomy does have a history of DVT in the past has been on Eliquis however this medication was reduced for his surgical intervention he has just recently increased to his full dose yesterday. He denies any shortness of breath or chest pain he states the leg pain in his leg feels similar to prior blood clots in the past Left Leg Pain Score (Numeric/FACES): 4 - Related Data Allergies Allergy/AdvReac Type Severity Reaction Status Date / Time acetaminophen Allergy Rash Verified 03/11/21 12:36 bacitracin Allergy Rash Verified 03/11/21 12:36 cephalexin Allergy Rash Verified 03/11/21 12:36 codeine Allergy Fainting Verified 03/11/21 12:36 tolterodine tartrate Allergy Rash Verified 03/11/21 12:36 [From [facility]] environmental Allergy Cannot Uncoded 03/11/21 12:36 Remember Home Meds: Home Meds Acyclovir [Zovirax 5% Oint] 1 applic TOP DAILY PRN 08/21/14 [History] Aspirin [Halfprin] 81 mg PO BEDTIME 08/21/14 [History] Clobetasol [Temovate 0.05% Oint] 1 applic TOP QID PRN 08/21/14 [History] Levothyroxine Sodium [Synthroid] 75 mcg PO DAILY 08/21/14 [History] Mupirocin Oint [Bactroban Oint] 1 applic TP QID PRN 08/21/14 [History] [place]-3 Fatty Acids [[place]-3] 1,000 mg PO BID 08/21/14 [History] Triamcinolone Acetonide [Kenalog 0.1% Crm] 0.1 percent TOP QID PRN 08/21/14 [History] atorvaSTATin [Lipitor] 20 mg PO BEDTIME 08/21/14 [History] valACYclovir [Valtrex] 1,000 mg PO BID PRN 08/21/14 [History] Allopurinol [Zyloprim] 200 mg PO DAILY 10/31/15 [History] Cyanocobalamin (Vitamin B-12) [B-12] 2,500 mcg PO DAILY 10/31/15 [History] Cholecalciferol (Vitamin D3) [Vitamin D] 2,000 unit PO DAILY 09/21/18 [History] Multivitamin [Multivitamins] 1 each PO DAILY 09/21/18 [History] Apixaban [Eliquis] 2.5 mg PO BID 06/13/19 [History] Betamethasone/Propylene Glyc [Betamethasone DP Aug 0.05%] 1 applic TOP ASD IRECTED PRN 06/13/19 [History] Diclofenac Sodium 1 applic TOP QID PRN 06/13/19 [History] Ketoconazole [Nizoral 2% Shampoo] 1 applic TOP DAILY 06/13/19 [History] cilostazoL [Cilostazol] 100 mg PO BID 06/13/19 [History] tiZANidine HCl [Tizanidine HCl] 4 mg PO DAILY PRN 05/23/20 [History] calcium polycarbophiL [Fibercon] 1,250 mg PO DAILY 03/06/21 [History] Acetaminophen [Tylenol] 650 mg PO QID 5 Days tab 03/09/21 [Rx] HYDROmorphone [Dilaudid] 2 mg PO Q6H PRN #12 tablet 03/09/21 [Rx] Past Medical History HEENT History: Reports: Allergic Rhinitis, Impaired Vision, Sinusitis, Other (See Below) Other HEENT History: wears glasses. PT HAS DENTAL IMPLANT Cardiovascular History: Reports: Heart Murmur, High Cholesterol Gastrointestinal History: Reports: GERD Genitourinary History: Reports: BPH, Prostate Disorder, Renal Disease Musculoskeletal History: Reports: Gout, Other (See Below) Other Musculoskeletal History: low back pain. right shoudler pain. left knee pain Neurological History: Reports: Headaches, Chronic, Vertigo Endocrine/Metabolic History: Reports: Hypothyroidism, Vitamin D Deficiency Hematologic History: Reports: B12 Deficiency, Other (See Below) Other Hematologic History: monoclonol protein Immunologic History: Reports: None Oncologic (Cancer) History: Reports: Basal Cell Carcinoma, Prostate Dermatologic History: Reports: Psoriasis, Urticaria - Infectious Disease History Infectious Disease History: Reports: Herpes, Measles, Mumps - Past Surgical History HEENT Surgical History: Reports: Tonsillectomy, Other (See Below) Other HEENT Surgeries/Procedures: eyelid surgery Cardiovascular Surgical History: Reports: Other (See Below) Other Cardiovascular Surgeries/Procedures: angiogram GI Surgical History: Reports: Colonoscopy, EGD, Hernia, Inguinal, Hernia Repair/Other Male Surgical History: Reports: Prostate Biopsy, Prostatectomy, Other (See Below) Other Male Surgeries/Procedures: kidney biopsy Endocrine Surgical History: Reports: None Musculoskeletal Surgical History: Reports: Arthroscopic Knee Oncologic Surgical History: Reports: Other (See Below) Other Oncologic Surgeries/Procedures: left upper chest skin biopsy, eyelid growth removal Dermatological Surgical History: Reports: Skin Biopsy Social & Family History - Family History Family Medical History: No Pertinent Family History - Tobacco Use Tobacco Use Status *Q: Never Tobacco User Second Hand Smoke Exposure: No - Caffeine Use Caffeine Use: Reports: Soda - Recreational Drug Use Recreational Drug Use: No ED ROS GENERAL - Review of Systems Review Of Systems: See Below Constitutional: Reports: No Symptoms Respiratory: Reports: No Symptoms Cardiovascular: Reports: No Symptoms GI/Abdominal: Reports: No Symptoms Musculoskeletal: Reports: Leg Pain ED EXAM, GENERAL - Physical Exam Exam: See Below Free Text/Narrative:: Examination of the left lower extremity cannot appreciate any specific point tenderness outpatient along the leg I do not appreciate any edema there is no erythema noted full range of motion of leg pedal pulse +2 Exam Limited By: No Limitations General Appearance: Alert, WD/WN, No Apparent Distress Respiratory/Chest: No Respiratory Distress, Lungs Clear, Normal Breath Sounds, No Accessory Muscle Use, Chest Non-Tender Cardiovascular: Regular Rate, Rhythm, No Murmur Course - Vital Signs Last Recorded V/S: Last Vital Signs Temp 98 F 03/11/21 12:42 Pulse 78 03/11/21 12:42 Resp 16 03/11/21 12:42 BP 140/92 H 03/11/21 12:42 Pulse Ox 96 03/11/21 12:42 - Orders/Labs/Meds Orders: Active Orders 24 hr Category Date Time Status VL Duplex Lwr Ext Veins Ltd Lt [US] Stat Exams 03/11/21 12:47 Taken Departure - Departure Time of Disposition: 13:40 Disposition: Home, Self-Care 01 Condition: Fair Clinical Impression: Left leg pain - Discharge Information Referrals: Luis Carlos Nicole MD [Primary Care Provider] - Forms: ED Department Discharge Additional Instructions: Please keep your follow-up appointments with general surgery, your primary care and your vascular surgeon, call return to the emergency department worsening of symptoms Sepsis Event Note (ED) - Evaluation Sepsis Screening Result: No Definite Risk - Focused Exam Vital Signs: Vital Signs Temp Pulse Resp BP Pulse Ox 03/11/21 12:42 98 F 78 16 140/92 H 96 - My Orders Last 24 Hours: My Active Orders 03/11/21 12:47 VL Duplex Lwr Ext Veins Ltd Lt [US] Stat - Assessment/Plan Last 24 Hours: My Active Orders 03/11/21 12:47 VL Duplex Lwr Ext Veins Ltd Lt [US] Stat Plan: Assessment Acuity = acute Site and laterality = left leg pain Etiology = unknown Manifestations = none Location of injury = Home Lab values = ultrasound was negative for any DVT official read radiologist pending Plan I did review unofficial ultrasound results from follow-up with his primary care ongoing leg pain he does have known peripheral vascular disease he is following a vascular surgery in the [facility] as well This note was dictated using [employer] voice recognition software please call with any questions on syntax or grammar.
--- NOTE | 2021-03-11 13:51 | US ---
VL Duplex Lwr Ext Veins Ltd Lt INDICATION: pain, post op 4 FINDINGS: Ultrasound examination of the lower extremity using Doppler and compressive technique demonstrates that the common femoral, femoral, and popliteal veins are patent, and negative for thrombus. The calf veins were segmentally visualized and are negative where seen. IMPRESSION: Negative for deep venous thrombosis.
== END 2021-03-11 14:01 | disposition home or self-care (01) ==
LOC: JP.ED 11:08
DX: M79.605 Pain in left leg (principal); M10.9 Gout, unspecified; K21.9 Gastro-esophageal reflux disease without esophagitis; E78.00 Pure hypercholesterolemia, unspecified; E03.9 Hypothyroidism, unspecified; Z86.718 Personal history of other venous thrombosis and embolism; Z79.01 Long term (current) use of anticoagulants; Z88.5 Allergy status to narcotic agent; Z88.8 Allergy status to other drugs, medicaments and biological substances; Z88.1 Allergy status to other antibiotic agents
CPT/HCPCS: 93971-26-LT; 93971-LT; 99283-25

== ENCOUNTER 2024-02-05 18:49 | Emergency (ER) | payer MEDICARE, OTHER ==
[2024-02-05] MEDS: HYDROmorphone 0.5 MG/0.5 ML Syringe IVPUSH ONE (20:11)
[2024-02-05] MEDS: fentaNYL 100 MCG/2 ML SDV IVPUSH ONE (20:31)
[2024-02-05 21:53] LABS: HEMOGLOBIN 16.3 g/dL (12.9-16.9)
[2024-02-05 21:57] LABS: ANION GAP 12.8 mmol/L (5.0-14.0); CALCIUM 9.5 mg/dL (8.5-10.1); CREATININE 1.6 mg/dL (0.8-1.3); EST CRCL DRUG DOSING (CG) 40.34 mL/min; POTASSIUM,K 4.3 mmol/L (3.6-5.2)
[2024-02-05 21:58] LABS: INR 1.1; PROTHROMBIN TIME 11.3 sec (9.2-10.6)
[2024-02-05 21:59] LABS: PLATELET COUNT,PLT 150 K/uL (130-375); WHITE BLOOD CELL COUNT,WBC 14.1 K/uL (3.2-11.0)
[2024-02-05 22:02] LABS: BAND ABSOLUTE MAN 0.28 K/uL; BAND PERCENT MAN 2 % (5-11); EOSINOPHILS ABSOLUTE MAN 0.14 K/uL (0.00-0.40); EOSINOPHILS PERCENT MAN 1 % (2-4); LYMPHOCYTES ABSOLUTE MAN 0.99 K/uL (0.8-3.3); LYMPHOCYTES PERCENT MAN 7 % (24-44); MONOCYTES ABSOLUTE MAN 1.27 K/uL (0.20-0.90); MONOCYTES PERCENT MAN 9 % (2-6); NEUTROPHILS ABSOLUTE MAN 11.42 K/uL (1.0-7.6); SEG NEUTROPHILS PERCENT MAN 81 % (36-66)
[2024-02-05] MEDS: fentaNYL 50 MCG/ML SDV IVPUSH ONE ×2 (22:21→23:52)
[2024-02-06 01:47] VITALS: BP 123/68; PULSE 85
[2024-02-06] MEDS: fentaNYL 50 MCG/ML SDV IVPUSH PRN (02:30)
== END 2024-02-06 11:52 | disposition other institution (70) ==
LOC: JP.ED 18:49
DX: S72.012A Unspecified intracapsular fracture of left femur, initial encounter for closed fracture (principal); E78.00 Pure hypercholesterolemia, unspecified; K21.9 Gastro-esophageal reflux disease without esophagitis; E03.9 Hypothyroidism, unspecified; Z79.82 Long term (current) use of aspirin; Z79.899 Other long term (current) drug therapy; Z79.890 Hormone replacement therapy; Z79.01 Long term (current) use of anticoagulants; Z91.09 Other allergy status, other than to drugs and biological substances; Z88.6 Allergy status to analgesic agent; Z88.1 Allergy status to other antibiotic agents; Z88.5 Allergy status to narcotic agent; Z88.8 Allergy status to other drugs, medicaments and biological substances; W19.XXXA Unspecified fall, initial encounter
CPT/HCPCS: 36415; 73502; 80048; 85004; 85018; 85049; 85610; 96374; 96375; 96376; 99285; J1170; J3010

== ENCOUNTER 2025-02-04 10:27 | Emergency (ER) | payer MEDICARE, OTHER ==
[2025-02-04 11:38] LABS: BASOPHILS ABSOLUTE AUTO 0.06 K/uL (0.00-0.10); BASOPHILS PERCENT AUTO 0.8 % (0.1-1.3); EOSINOPHILS ABSOLUTE AUTO 0.88 K/uL (0.00-0.40); EOSINOPHILS PERCENT AUTO 11.5 % (0.0-5.4); IMMATURE GRAN ABSOLUTE AUTO 0.03 K/uL (0.00-0.23); IMMATURE GRAN PERCENT AUTO 0.4 % (0.0-0.7); LYMPHOCYTES ABSOLUTE AUTO 1.14 K/uL (0.8-3.3); LYMPHOCYTES PERCENT AUTO 14.9 % (11.4-47.7); MONOCYTES ABSOLUTE AUTO 0.58 K/uL (0.20-0.90); MONOCYTES PERCENT AUTO 7.6 % (3.3-12.6); NEUTROPHILS ABSOLUTE AUTO 4.97 K/uL (1.0-7.6); NEUTROPHILS PERCENT AUTO 64.8 % (40.0-78.1); PLATELET COUNT,PLT 249 K/uL (130-375); RED BLOOD CELL COUNT 4.48 M/uL (4.14-5.76); WHITE BLOOD CELL COUNT,WBC 7.7 K/uL (3.2-11.0)
[2025-02-04 12:00] LABS: BLOOD UREA NITROGEN,BUN 32.0 mg/dL (7-18); CARBON DIOXIDE,CO2 28.0 mmol/L (21-32); CHLORIDE,CL 109.0 mmol/L (100-108); CREATINE KINASE,CK 38.0 U/L (39-308); CREATININE 1.4 mg/dL (0.8-1.3); EST CRCL DRUG DOSING (CG) 45.27 mL/min; ESTIMATED GFR 49.0 mL/min (>60); GLUCOSE RANDOM 131.0 mg/dL (74-106); POTASSIUM,K 4.3 mmol/L (3.6-5.2); SODIUM,NA 142.0 mmol/L (140-148)
[2025-02-04 12:25] VITALS: BP 127/72; PULSE 79
== END 2025-02-04 14:03 | disposition home or self-care (01) ==
LOC: JP.ED 10:27
DX: I87.2 Venous insufficiency (chronic) (peripheral) (principal); K21.9 Gastro-esophageal reflux disease without esophagitis; E78.00 Pure hypercholesterolemia, unspecified; E03.9 Hypothyroidism, unspecified; Z88.1 Allergy status to other antibiotic agents; Z88.8 Allergy status to other drugs, medicaments and biological substances; Z88.5 Allergy status to narcotic agent; Z79.82 Long term (current) use of aspirin; Z79.899 Other long term (current) drug therapy; Z79.890 Hormone replacement therapy
CPT/HCPCS: 36415; 73610-26-LT; 73610-LT; 73620-26-LT; 73620-LT; 80048; 82550; 85025; 86140; 99283